=== PATIENT | female | born 1935 | race Caucasian/White ===

== ENCOUNTER → 2016-08-25 | Outpatient (CLI) | payer MEDICARE, OTHER ==
[~2016-08-25] MED LIST: ASPI1TAB69 PO; ATEN50TA PO; CENTTAB PO; CIPR500T2 PO; CO Q100C9 PO; DETR2TAB PO; FLAX1000; HYDR25TA5 PO; OCUVTAB PO; PYRI100T PO; TRAM50TA PO; VITA10004 PO; VITA400C2 PO; VITA500030 CHEW; VITATAB11; VITATAB11 PO; VYTO10TA9 PO
[2016-08-25 12:20] LABS: BASOPHIL # 0.1 TH/MM3 (0-0.2); BASOPHIL % 1.1 % (0.0-2.0); EOSINOPHIL # 0.4 TH/MM3 (0-0.4); EOSINOPHIL % 5.1 % (0.0-4.0); HEMO FLAGS DIFF FINAL; LYMPH % 27.5 % (9.0-44.0); MEAN CELL VOLUME 93.5 FL (80.0-100.0); MEAN CORPUSCULAR HEMOGLOBIN 31.6 PG (27.0-34.0); MEAN CORPUSCULAR HGB CONC 33.8 % (32.0-36.0); MONO % 10.6 % (0.0-8.0); NEUT % 55.7 % (16.0-70.0); PLATELET COUNT 178 TH/MM3 (150-450); RED BLOOD COUNT 3.96 MIL/MM3 (4.00-5.30); RED CELL DISTRIBUTION WIDTH 13.3 % (11.6-17.2); WHITE BLOOD COUNT 7.2 TH/MM3 (4.0-11.0)
[2016-08-25 12:26] LABS: APTT (PATIENT) 26.6 SEC (24.3-30.1)
[2016-08-25 12:50] LABS: ALT (GPT) 33 U/L (10-53); ANION GAP 7 MEQ/L (5-15); AST (GOT) 23 U/L (15-37); BLOOD UREA NITROGEN 13 MG/DL (7-18); CHLORIDE 105 MEQ/L (98-107); GLOMERULAR FILTRATION RATE 47 ML/MIN (>89); GLUCOSE,FASTING 78 MG/DL (74-99); POTASSIUM 3.7 MEQ/L (3.5-5.1); SODIUM (NA) 140 MEQ/L (136-145)
[2016-08-25 12:52] LABS: ALKALINE PHOSPHATASE 91 U/L (45-117); TOTAL BILIRUBIN ADULT 0.3 MG/DL (0.2-1.0)
--- NOTE | 2016-08-25 13:35 | RADRPT ---
EXAM DATE/TIME: 08/25/2016 12:21 [facility] COMPARISON: No previous studies available for comparison. INDICATIONS : Evaluate for pneumonia, pneumothorax or communicable disease. Pre op lumbar surgery. MEDICAL HISTORY : None. SURGICAL HISTORY : None. ENCOUNTER: Initial ACUITY: 1 day PAIN SCORE: 0/10 LOCATION: Bilateral chest FINDINGS: PA and lateral views of the chest demonstrate the lungs to be symmetrically aerated without evidence of mass, infiltrate or effusion. There is a linear band of density at the left lung base discoid ate lectasis or scarring. Atherosclerotic changes are present in the aorta with calcification. There is m ild to moderate scoliosis. The cardiomediastinal contours are unremarkable. Osseous structures are i ntact. CONCLUSION: 1. Atelectasis or scarring at the left lung base. 2. Mild to moderate scoliosis. Ariel Crawford MD on August 25, 2016 at 13:33 Board Certified Radiologist. This report was verified electronically.
[2016-08-25 14:12] LABS: BACTERIA, URINE OCC /hpf; BLOOD, URINE NEG (NEG); COMMENT (UR) CULTURE INDICATED; CULTURE IF INDICATED CULTURE INDICATED; GLUCOSE,URINE NEG (NEG); HYALINE CAST, URINE 4 /lpf (RARE); KETONE, URINE NEG (NEG); MUCUS URINE FEW /lpf (OCC); NITRITE,URINE NEG (NEG); RENAL EPITHELIAL CELLS <1 /hpf; SQUAMOUS EPITHELIAL CELL URINE 1 /hpf (0-5); TRANSITIONAL EPI CELLS, URINE 1 /hpf; URINE COLOR YELLOW (YELLW/STRAW)
--- NOTE | 2016-08-25 17:29 | EKG ---
Date Performed: 08/25/2016 Time Performed: 11:37:32 PTAGE: 80 years EKG: Sinus rhythm POSSIBLE INFERIOR MYOCARDIAL INFARCTION, PROBABLY OLD Since previous tracing, no significant change noted BORDERLINE ECG PREVIOUS TRACING : 07/18/2012 06.48 DOCTOR: Griffin Mckeon Interpretating Date/Time 08/25/2016 17:29:04
== END ==
LOC: CPRE 11:13
PROVIDERS: ATTEND Neurological Surgery
DX: Z01.812 Encounter for preprocedural laboratory examination (principal); Z01.810 Encounter for preprocedural cardiovascular examination; Z01.811 Encounter for preprocedural respiratory examination; S32.000A Wedge compression fracture of unspecified lumbar vertebra, initial encounter for closed fracture; I10 Essential (primary) hypertension; Z79.01 Long term (current) use of anticoagulants; Z87.440 Personal history of urinary (tract) infections; R82.90 Unspecified abnormal findings in urine
CPT/HCPCS: 36415; 71020; 80053; 81001; 85025; 85610; 85730; 87086; 93005

== ENCOUNTER → 2016-08-28 | Day surgery (SDC) | payer MEDICARE, OTHER ==
[~2016-08-28] VITALS: Ht 157.5 cm; Wt 70.9 kg
[~2016-08-28] MED LIST changes: +ACETAMINOPHEN 1000 MG/100 ML VIAL IV ONE; +BACITRACIN TOP OINT 15 GM TUBE ONE; +BUPIVACAINE/EPINEPHRINE 0.5% PF 30 ML VIAL ONE; +DEXAMETHASONE SOD PHOS 4 MG/ML VIAL ONE; +DO NOT ADM ANY ANTICOAGULANT DRUGS XX PRN; +FAMOTIDINE 20 MG/2 ML VIAL ONE; +INSULIN HUMAN REGULAR 1,000 UNITS/10 ML VIAL SQ PRN; +IOHEXOL 350 MG/ML 50 ML BTL (for RAD DIAG) ONE; +LACTATED RINGER'S 1000 ML IV SCH; +METOPROLOL TARTRATE 25 MG TAB PO PRN; +MIDAZOLAM HCL 2 MG/2 ML VIAL ONE; +ONDANSETRON HCL 4 MG/2 ML VIAL IV PUSH ONE; +PROPOFOL 200 MG/20 ML AMP IV ONE; +SODIUM CHLOR 0.9% 1000 ML INJ 1,000 ML IV SCH; +SODIUM CHLORID 0.9% 500 ML IV SCH; +VANCOMYCIN HCL 1000 MG ON-CALL/NS 250 ML IV SCH; -VITATAB11; +fentaNYL CITRATE 250 MCG/5 ML AMP ONE
[2016-08-28 09:15] VITALS: BP 136/77; PULSE 78; RESP 18; TEMP 98; O2SAT 96
--- NOTE | 2016-08-28 13:29 | PD.OP ---
Joni Ruiz D.O. Operative Report Date of Surgery: Aug 28, 2016 Preoperative Diagnosis: Intractable low back pain from L1 vertebral body compression fracture Postoperative Diagnosis: Same Procedure: L1 kyphoplasty Anesthesia: Gen. endotracheal by Joselo [place] Surgeon: Joon Spain M.D. Water/Wastewater Project Manager(s): None Operation and Findings: Following administration of a general endotracheal anesthesia patient was placed in the prone position on chest rolls and Narendra table and all pressure points adequate padded. IV antibiotics were administered intravenously and the thoracolumbar area posteriorly prepped with a Betadine solution and painted and draped in the usual sterile fashion. Using AP and lateral arthroscopy guidance the stab incision sites were made at the L1 level overlying the pedicles bilaterally after infiltrating the skin was 0.5% Marcaine. The Jamshidi needles were then passed into the vertebral body to the pedicles on both sides and the hand-held drill trajectory created. The drills were then removed and then the balloons were passed into the vertebral body through both sides and dilated to create a cavity and restore vertebral body height. Subsequently the balloons were removed and the cavity packed with the bone cement 6 cc total. The guide was then removed and Steri-Strips applied at the puncture wounds along with a sterile dressing. He was then turned in spine position, extubated and taken to the recovery room. There were no intraoperative medications and all sponge and needle count was correct at the end the procedure. Estimated blood loss less than 5 cc. Joon Spain MD Aug 28, 2016 13:29
[2016-08-28 14:42] VITALS: BP 159/89; PULSE 75; RESP 18; TEMP 97.9; O2SAT 97
--- NOTE | 2016-08-28 15:58 | RADRPT ---
EXAM DATE/TIME: 08/28/2016 13:08 [facility] COMPARISON: No previous studies available for comparison. INDICATIONS : L1 Kyphoplasty. MEDICAL HISTORY : Hypertension. Arthritis. SURGICAL HISTORY : L5 laminectomy. ENCOUNTER: Initial ACUITY: 1 day PAIN SCORE: Non-responsive. LOCATION: Lumbar spine. FINDINGS: The patient is status post a kyphoplasty at L1. Cement is confined within the kera tebral body. CONCLUSION: Cement is confined within the vertebral body. Charbel Tipton MD FACR on August 28, 2016 at 15:52 Board Certified Radiologist. This report was verified electronically.
== END | disposition home or self-care (01) ==
LOC: HSDC 08:38
PROVIDERS: ATTEND Neurological Surgery
DX: S32.010A Wedge compression fracture of first lumbar vertebra, initial encounter for closed fracture (principal)
CPT/HCPCS: 01936; 22514; 72100; J0131; J1100; J2250; J2405; J3010; J3370; J7050; J7120; Q9967